=== PATIENT | male | born 1985 | race Caucasian/White ===

== ENCOUNTER 2021-10-31 14:51 | Emergency (ER) | payer OTHER, SELFPAY ==
--- NOTE | ~2021-10-31 | XR_ITS ---
EXAMINATION: XR abdomen/kub 1V INDICATION: Hematuria and back pain TECHNIQUE: Supine views of the abdomen were obtained on 2 radiographs. COMPARISON: 04/05/2008 FINDINGS: There is a 4 mm calcification projecting just above the right L3 transverse process. Puncta te calcifications measuring up to 2 mm project in the right kidney. There are phleboliths of the pelv is. The bowel gas pattern is normal. IMPRESSION: 1. 4 mm calcification projecting just above the right L3 transverse process in the expected location of the proximal right ureter. Reviewed, dictated and finalized at location A.
[2021-10-31 15:05] VITALS: BP 153/110; PULSE 103; RESP 16; TEMP 37.2; O2SAT 99
--- NOTE | 2021-10-31 15:19 | ED.MALEGU ---
HPI - Male Genitourinary General Chief complaint: Urogenital-Male Stated complaint: Urinating blood Time Seen by Provider: 10/31/21 15:19 Source: patient Mode of arrival: ambulatory Limitations: no limitations History of Present Illness HPI Narrative: 36-year-old male presents with complaint of hematuria, dysuria and low back pain. Reports that he woke up this morning and urinated but did not look his urine before flushing the toilet. States on the way to work he noticed some low back pain and pressure. When he got to work again he had some burning with urination and noticed blood in his urine. Back pain has resolved But still has had some hematuria. Denies fever chills. No nausea vomiting diarrhea. History of kidney stone several years ago. All systems reviewed and negative except as noted above. Related Data Home Medications Medication Instructions Recorded Confirmed omeprazole 20 mg PO DAILY 05/06/19 10/31/21 Allergies Allergy/AdvReac Type Severity Reaction Status Date / Time No Known Allergies Allergy Verified 10/31/21 15:00 Review of Systems Review of Systems: CONSTITUTIONAL: Denies fever, chills, or sweats. EYES: Denies visual changes, redness, or discharge. ENT: Denies rhinorrhea, congestion, sore throat, or otalgia. CARDIOVASCULAR: Denies chest pain, palpitations, or edema. RESPIRATORY: Denies cough or dyspnea. GASTROINTESTINAL: Denies abdominal pain, nausea, vomiting, or diarrhea. GENITOURINARY: Reports dysuria, hematuria, low back pain. SKIN: Denies rash or itching. MUSCULOSKELETAL: Denies back pain, joint pain, or myalgia. NEUROLOGIC: Denies headache, numbness, or weakness. PSYCHIATRIC: Denies anxiety or depression. All other systems reviewed are negative, except as documented in HPI. PMFSH Comments At time of signature, agree with nursing past medical, surgical, social and family history. There is no relevant family history pertinent to the presenting complaint. Exam Narrative: GENERAL: This is a well-nourished, well-developed patient, in no apparent distress. HEAD: normocephalic, atraumatic. EYES: PERRL. Sclera clear/white. Vision is grossly intact. EARS: External ears normal NOSE: External nose normal NECK: Neck supple, non-tender without lymphadenopathy, masses or thyromegaly. CARDIOVASCULAR: Regular rate and rhythm without murmurs, gallops, or rubs. RESPIRATORY: Clear to auscultation. Breath sounds equal bilaterally. No wheezes, rales, or rhonchi. GASTROINTESTINAL: Abdomen soft, non-tender, nondistended. Bowel sounds are active. No hepato-splenomegaly, or palpable masses. No guarding. SKIN: warm, Dry, intact with no suspicious lesions or rash, good texture and turgor. NEURO: awake, alert, and oriented to person, place and time. There were no obvious focal neurologic abnormalities. EXTREMITIES: Normal range of motion to all extremities. Course Course Level of Care: Express Care Visit Vital Signs Vital signs: Vital Signs Temperature 37.2 C 10/31/21 15:05 Pulse Rate 103 H 10/31/21 15:05 Respiratory Rate 16 10/31/21 15:05 Blood Pressure 153/110 H 10/31/21 15:05 Pulse Oximetry 99 10/31/21 15:05 Temperature 37.2 C 10/31/21 15:05 Pulse Rate 103 H 10/31/21 15:05 Respiratory Rate 16 10/31/21 15:05 Blood Pressure 153/110 H 10/31/21 15:05 Pulse Oximetry 99 10/31/21 15:05 Reviewed MDM - Male Genitourinary MDM Narrative Medical decision making narrative: Discussed x-ray results with patient. Will prescribe medications for kidney stone. Prescribing antibiotic as a precaution. Referred to urology for follow-up. Patient is aware of diagnosis, understands and agrees to treatment plan. Anticipatory guidance given. Patient agrees to follow-up as directed and is aware of reasons to seek care at the emergency department. Portions of this record may have been created with voice recognition software Lab Data Labs: Urine Glucose Negative
== END 2021-10-31 15:58 | disposition home or self-care (01) ==
PROVIDERS: Emergency Provider Nurse Practitioner Family; PCP Family Medicine Adolescent Medicine
DX: N20.0 Calculus of kidney (principal); K21.9 Gastro-esophageal reflux disease without esophagitis
CPT/HCPCS: 74018; 81003; 99213; G0463

== ENCOUNTER 2023-03-22 13:50 | Outpatient (CLI) | payer OTHER, SELFPAY ==
--- NOTE | ~2023-03-22 | XR_ITS ---
XR knee RT 3V 03/22/2023 14:33 Indication: Right knee pain Procedure: 3 views right knee Comparison: No prior studies for comparison. Findings: No fracture, subluxation or dislocation. No significant joint effusion. No foreign bodies. Impression: 1: No significant bone or joint abnormality. Reviewed, dictated and finalized at location B. Impression: 1: No significant bone or joint abnormality.
== END 2023-03-22 13:51 ==
LOC: MICIMG 13:53
PROVIDERS: PCP Family Medicine Adolescent Medicine; Visit Provider Family Medicine Adolescent Medicine
DX: M25.561 Pain in right knee (principal)
CPT/HCPCS: 73562